=== PATIENT | male | born 1985 | race Two or more races ===

== ENCOUNTER 2018-01-29 18:15 | Emergency (ER) | payer OTHER ==
[~2018-01-29] VITALS: Ht 175.3 cm; Wt 108.9 kg
[2018-01-29 18:20] VITALS: BP 137/94
== END 2018-01-29 20:58 | disposition home or self-care (01) ==
LOC: ER 18:24
DX: S80.01XA Contusion of right knee, initial encounter (principal); Z88.6 Allergy status to analgesic agent; W20.8XXA Other cause of strike by thrown, projected or falling object, initial encounter; Y93.89 Activity, other specified; Y92.89 Other specified places as the place of occurrence of the external cause; Y99.8 Other external cause status
CPT/HCPCS: 73562